=== PATIENT | male | born 1960 | race Caucasian/White ===

== ENCOUNTER 2022-01-16 14:28 | Observation (INO) ==
[2022-01-16 15:09] LABS: Basophils % 0.3 %; Eosinophils % 0.2 %; Hemoglobin 11.8 g/dL (12.9-16.9); Immature Granulocytes % 1.1 % (0-4); Lymphocytes # 1.1 K/mcL (0.6-4.6); Lymphocytes % 17.6 %; Mean Corpuscular HGB Conc 35.8 g/dL (31.6-35.5); Mean Corpuscular Hemoglobin 29.6 pg (28.0-33.3); Mean Corpuscular Volume 82.7 fL (83.0-100.0); Mean Platelet Volume 8.4 fL (9.4-12.4); Monocytes # 0.9 K/mcL (0.0-1.3); Monocytes % 13.9 %; Neutrophils # 4.3 K/mcL (1.6-8.9); Platelet Count 197 K/mcL (140-400); Red Blood Count 3.99 M/mcL (4.19-5.50); Red Cell Distribution Width 15.3 % (11.5-14.5); Segmented Neutrophils % 66.9 %; White Blood Count 6.4 K/mcL (4.3-11.1)
[2022-01-16 15:17] LABS: INR 1.1; Prothrombin Time 12.5 Seconds (9.4-12.1)
[2022-01-16 15:20] LABS: Activated Partial Thrombo Time 29.4 Seconds (26.0-36.0)
[2022-01-16] MEDS ORDERED: Isovue-370 500 ML BOTTLE IVP ONE (15:21)
[2022-01-16 15:40] LABS: Alanine Aminotransferase 13 Units/L (7-52); Albumin 4.3 g/dL (3.5-5.7); Albumin/Globulin Ratio 1.7 (1.1-2.2); Alkaline Phosphatase 120 Units/L (34-104); Aspartate Amino Transferase 24 Units/L (13-39); BUN/Creatinine Ratio 10 (6-26); Bilirubin,Direct 0.1 mg/dL (0.0-0.2); Bilirubin,Indirect 0.3 mg/dL (0.0-1.0); Bilirubin,Total 0.4 mg/dL (0.3-1.0); Blood Urea Nitrogen 7 mg/dL (6-20); Calcium 9.2 mg/dL (8.6-10.3); Carbon Dioxide 25 mEq/L (23-29); Chloride 85 mEq/L (98-107); Globulin 2.6 g/dL (2.4-3.5); Glucose 144 mg/dL (70-105); Osmolality,Calculated 249 (280-300); Potassium 3.7 mEq/L (3.5-5.1); Sodium 119 mEq/L (136-145); Total Protein 6.9 g/dL (6.4-8.9); Troponin I < 0.03 ng/mL (< 0.04); eGFR For African Americans > 60 (> 60); eGFR For Non-African Americans > 60 (> 60)
[2022-01-16 16:14] LABS: Influenza A PCR Negative (Negative); Influenza B PCR Negative (Negative); Resp. Syncytial Virus PCR Negative (Negative)
[2022-01-16 16:15] LABS: SARS-CoV-2 by PCR (In House) Negative (Negative)
[2022-01-16] MEDS ORDERED: Aspirin 325 MG TABLET PO ONE (18:12)
[2022-01-16] MEDS ORDERED: Famotidine 20 MG/2 ML VIAL IVP ONE (18:16)
[2022-01-16] MEDS ORDERED: Naloxone 0.4 MG/ML INJ IVP PRN (18:46)
[2022-01-16] MEDS ORDERED: *HR* HYDROcodone/Acet 5/325 mg TABLET PO PRN (19:42)
[2022-01-16] MEDS ORDERED: traZODone 50 MG TABLET PO PRN (19:42)
[2022-01-16] MEDS: OLANZapine 5 MG TAB.RAPDIS PO SCH (20:53)
[2022-01-16] MEDS: Gabapentin 300 MG CAPSULE PO SCH (20:53)
[2022-01-16] MEDS ORDERED: Nitroglycerin 0.4 MG TAB.SUBL SL PRN (20:59)
[2022-01-16] MEDS: *HR* Heparin 5,000 UNIT/ML VIAL SQ SCH (22:02)
[2022-01-16 23:06] LABS: BUN/Creatinine Ratio 13 (6-26); Blood Urea Nitrogen 8 mg/dL (6-20); Calcium 8.5 mg/dL (8.6-10.3); Carbon Dioxide 24 mEq/L (23-29); Chloride 88 mEq/L (98-107); Glucose 174 mg/dL (70-105); Osmolality,Calculated 251 (280-300); Sodium 119 mEq/L (136-145); Troponin I < 0.03 ng/mL (< 0.04); eGFR For African Americans > 60 (> 60); eGFR For Non-African Americans > 60 (> 60)
[2022-01-17 01:20] LABS: Chol/HDL Ratio 3.4 (0-4.9)
[2022-01-17 01:21] LABS: BUN/Creatinine Ratio 13 (6-26); Blood Urea Nitrogen 8 mg/dL (6-20); Calcium 8.7 mg/dL (8.6-10.3); Carbon Dioxide 25 mEq/L (23-29); Chloride 89 mEq/L (98-107); Glucose 125 mg/dL (70-105); Osmolality,Calculated 250 (280-300); Sodium 120 mEq/L (136-145); eGFR For African Americans > 60 (> 60); eGFR For Non-African Americans > 60 (> 60)
[2022-01-17] MEDS ORDERED: Regadenoson 0.4 MG/5 ML SYRINGE IVP ONE (07:41)
[2022-01-17] MEDS ORDERED: *HR* Metoprolol 5 MG/5 ML VIAL IVP ONE (09:00)
[2022-01-17] MEDS ORDERED: OLANZapine 5 MG TAB.RAPDIS PO SCH (09:00)
[2022-01-17] MEDS: Gabapentin 300 MG CAPSULE PO SCH ×3 (09:13→20:34)
[2022-01-17] MEDS: OLANZapine 5 MG TAB.RAPDIS PO SCH (09:13)
[2022-01-17] MEDS: *HR* Heparin 5,000 UNIT/ML VIAL SQ SCH ×3 (09:37→20:35)
[2022-01-17] MEDS: NIFEdipine XL (24 HR) 60 MG TAB.ER.24 PO SCH (12:01)
[2022-01-17] MEDS ORDERED: Tolvaptan 15 MG TABLET PO ONE (13:00)
[2022-01-17] MEDS ORDERED: Perflutren Lipid Microsphere 1.3 ML in 0.9 % Sodium Chloride 8.7 ML IVP PRN (13:59)
[2022-01-17] MEDS ORDERED: Acetaminophen 325 MG TABLET PO PRN (17:14)
[2022-01-18] MEDS: *HR* Heparin 5,000 UNIT/ML VIAL SQ SCH (04:53)
[2022-01-18 05:48] LABS: Hematocrit 33.5 % (37.5-50.1); Hemoglobin 11.8 g/dL (12.9-16.9); Mean Corpuscular HGB Conc 35.2 g/dL (31.6-35.5); Mean Corpuscular Hemoglobin 30.5 pg (28.0-33.3); Mean Corpuscular Volume 86.6 fL (83.0-100.0); Mean Platelet Volume 8.7 fL (9.4-12.4); Monocytes # 1.7 K/mcL (0.0-1.3); Platelet Count 234 K/mcL (140-400); Red Blood Count 3.87 M/mcL (4.19-5.50); Red Cell Distribution Width 16.3 % (11.5-14.5); White Blood Count 8.6 K/mcL (4.3-11.1)
[2022-01-18 06:20] LABS: BUN/Creatinine Ratio 14 (6-26); Blood Urea Nitrogen 13 mg/dL (6-20); Calcium 9.8 mg/dL (8.6-10.3); Carbon Dioxide 27 mEq/L (23-29); Chloride 98 mEq/L (98-107); Glucose 122 mg/dL (70-105); Magnesium 2.1 mg/dL (1.6-2.6); Osmolality,Calculated 277 (280-300); Phosphorous 2.9 mg/dL (2.7-4.5); Potassium 4.2 mEq/L (3.5-5.1); Sodium 133 mEq/L (136-145); eGFR For African Americans > 60 (> 60); eGFR For Non-African Americans > 60 (> 60)
[2022-01-18 06:57] LABS: Neutrophils # 5.9 K/mcL (1.6-8.9)
[2022-01-18 06:59] LABS: Platelet Estimate Normal (Normal)
[2022-01-18 07:04] VITALS: BP 121/75; PULSE 111; TEMP 98.8; O2SAT 95
[2022-01-18] MEDS ORDERED: D5% in Water 1,000 ML IVC SCH (08:00)
[2022-01-18] MEDS: NIFEdipine XL (24 HR) 60 MG TAB.ER.24 PO SCH (08:11)
[2022-01-18] MEDS: Gabapentin 300 MG CAPSULE PO SCH (08:11)
[2022-01-18] MEDS: OLANZapine 5 MG TAB.RAPDIS PO SCH (08:11)
[2022-01-18] MEDS ORDERED: traZODone 50 MG TABLET PO PRN (11:10)
== END 2022-01-18 12:35 | disposition home or self-care (01) ==
LOC: 2ANU 14:28 → EMEROOARM 14:28 → 2ANU 19:56
PROVIDERS: ADMIT Family Medicine; ATTEND Family Medicine

== ENCOUNTER 2022-02-05 12:44 | Inpatient (IN) ==
[2022-02-05] MEDS ORDERED: 0.9 % Sodium Chloride 1,000 ML IVC ONE (13:37)
[2022-02-05] MEDS ORDERED: Isovue-370 500 ML BOTTLE IVP ONE (13:37)
[2022-02-05 14:04] LABS: Hemoglobin 9.7 g/dL (12.9-16.9); Nucleated Red Blood Cells 0.4 /100 WBC (0); Red Cell Distribution Width 16.5 % (11.5-14.5)
[2022-02-05 14:06] LABS: Hematocrit 27.1 % (37.5-50.1); Immature Platelets 5.5 % (1.1-6.1); Mean Corpuscular HGB Conc 35.8 g/dL (31.6-35.5); Mean Corpuscular Hemoglobin 29.5 pg (28.0-33.3); Mean Corpuscular Volume 82.4 fL (83.0-100.0); Mean Platelet Volume 9.1 fL (9.4-12.4); Platelet Count 152 K/mcL (140-400); Red Blood Count 3.29 M/mcL (4.19-5.50); White Blood Count 26.9 K/mcL (4.3-11.1)
[2022-02-05 14:30] LABS: Lymphocytes # 2.2 K/mcL (0.6-4.6); Monocytes # 1.1 K/mcL (0.0-1.3); Neutrophils # 21.8 K/mcL (1.6-8.9); Platelet Estimate Normal (Normal); Toxic Granulation Present (Not Present)
[2022-02-05 14:32] LABS: Anisocytosis 1+ (Not Present)
[2022-02-05 14:34] LABS: BUN/Creatinine Ratio 13 (6-26); Blood Urea Nitrogen 7 mg/dL (6-20); Calcium 8.7 mg/dL (8.6-10.3); Carbon Dioxide 26 mEq/L (23-29); Chloride 83 mEq/L (98-107); Glucose 108 mg/dL (70-105); Osmolality,Calculated 241 (280-300); Potassium 3.7 mEq/L (3.5-5.1); Sodium 116 mEq/L (136-145); Troponin I < 0.03 ng/mL (< 0.04); eGFR For African Americans > 60 (> 60); eGFR For Non-African Americans > 60 (> 60)
[2022-02-05] MEDS ORDERED: cefTRIAXone 1,000 MG in 0.9 % Sodium Chloride Mini Bag 100 ML IVPB ONE (14:48)
[2022-02-05 15:40] LABS: Bilirubin,Urine Negative (Negative); Blood,Urine Negative (Negative); Clarity,Urine Clear (Clear); Color,Urine Colorless (Yellow); Glucose,Urine (UA) Normal (Normal); Ketones,Urine Negative (Negative); Leukocyte Esterase,Urine Negative (Negative); Nitrite,Urine Negative (Negative); Protein,Urine Negative (Neg-Trace); Specific Gravity,Urine > 1.030 (1.010-1.025); Urobilinogen,Urine Normal (Normal)
[2022-02-05] MEDS ORDERED: Piperacillin/Tazobactam 3.375 GM in 0.9 % Sodium Chloride Mini Bag 100 ML IVPB ONE (15:57)
[2022-02-05] MEDS ORDERED: Acetaminophen 325 MG TABLET PO PRN (17:05)
[2022-02-05] MEDS ORDERED: Naloxone 0.4 MG/ML INJ IVP PRN (17:05)
[2022-02-05] MEDS ORDERED: Ondansetron 4 MG/2 ML VIAL IVP PRN (17:05)
[2022-02-05] MEDS ORDERED: Melatonin 3 MG TABLET PO PRN (17:05)
[2022-02-05] MEDS ORDERED: Nicotine 2 MG GUM BC PRN (17:10)
[2022-02-05] MEDS ORDERED: OLANZapine 5 MG TAB.RAPDIS PO PRN (17:15)
[2022-02-05] MEDS: Nicotine 21 MG PATCH.TD24 TD SCH (17:29)
[2022-02-05] MEDS: 0.9 % Sodium Chloride 1,000 ML IVC SCH ×2 (17:30→19:49)
[2022-02-05] MEDS: *HR* HYDROcodone/Acet 5/325 mg TABLET PO PRN ×2 (17:30→23:43)
[2022-02-05] MEDS ORDERED: 0.9 % Sodium Chloride 1,000 ML IV ONE (18:47)
[2022-02-05] MEDS: Gabapentin 300 MG CAPSULE PO SCH (21:32)
[2022-02-05] MEDS: Piperacillin/Tazobactam 3.375 GM in 0.9 % Sodium Chloride Mini Bag 100 ML IVPB SCH (23:51)
[2022-02-06] MEDS: *HR* Enoxaparin 40 MG/0.4 ML SYRINGE SQ SCH (06:02)
[2022-02-06] MEDS: 0.9 % Sodium Chloride 1,000 ML IVC SCH (06:05)
[2022-02-06 06:09] LABS: Hematocrit 25.4 % (37.5-50.1); Hemoglobin 9.1 g/dL (12.9-16.9); Mean Corpuscular HGB Conc 35.8 g/dL (31.6-35.5); Mean Corpuscular Hemoglobin 29.9 pg (28.0-33.3); Mean Corpuscular Volume 83.6 fL (83.0-100.0); Mean Platelet Volume 9.7 fL (9.4-12.4); Nucleated Red Blood Cells 0.4 /100 WBC (0); Platelet Count 126 K/mcL (140-400); Red Blood Count 3.04 M/mcL (4.19-5.50); Red Cell Distribution Width 16.7 % (11.5-14.5); White Blood Count 24.8 K/mcL (4.3-11.1)
[2022-02-06 06:32] LABS: Monocytes # 0.5 K/mcL (0.0-1.3); Neutrophils # 20.8 K/mcL (1.6-8.9); Platelet Estimate Normal (Normal)
[2022-02-06 06:39] LABS: Alanine Aminotransferase 10 Units/L (7-52); Albumin 3.6 g/dL (3.5-5.7); Albumin/Globulin Ratio 1.7 (1.1-2.2); Alkaline Phosphatase 124 Units/L (34-104); Aspartate Amino Transferase 15 Units/L (13-39); BUN/Creatinine Ratio 9 (6-26); Bilirubin,Direct 0.1 mg/dL (0.0-0.2); Bilirubin,Indirect 0.2 mg/dL (0.0-1.0); Bilirubin,Total 0.3 mg/dL (0.3-1.0); Blood Urea Nitrogen 5 mg/dL (6-20); Calcium 8.2 mg/dL (8.6-10.3); Carbon Dioxide 24 mEq/L (23-29); Chloride 85 mEq/L (98-107); Globulin 2.1 g/dL (2.4-3.5); Glucose 85 mg/dL (70-105); Magnesium 1.4 mg/dL (1.6-2.6); Osmolality,Calculated 237 (280-300); Phosphorous 3.4 mg/dL (2.7-4.5); Potassium 4.1 mEq/L (3.5-5.1); Sodium 115 mEq/L (136-145); Total Protein 5.7 g/dL (6.4-8.9); eGFR For African Americans > 60 (> 60); eGFR For Non-African Americans > 60 (> 60)
[2022-02-06] MEDS ORDERED: Tolvaptan 15 MG TABLET PO ONE (08:24)
[2022-02-06] MEDS: *HR* HYDROcodone/Acet 5/325 mg TABLET PO PRN ×2 (09:11→16:35)
[2022-02-06] MEDS: NIFEdipine XL (24 HR) 60 MG TAB.ER.24 PO SCH (09:12)
[2022-02-06] MEDS: Gabapentin 300 MG CAPSULE PO SCH ×3 (09:12→21:39)
[2022-02-06] MEDS: Nicotine 21 MG PATCH.TD24 TD SCH (09:20)
[2022-02-06 10:38] LABS: Adenovirus Not Detected (Not Detect); Bordetella Pertussis Not Detected (Not Detect); Chlamydophila pneumoniae Not Detected (Not Detect); Coronavirus 229E Not Detected (Not Detect); Coronavirus HKU1 Not Detected (Not Detect); Coronavirus NL63 Not Detected (Not Detect); Coronavirus OC43 Not Detected (Not Detect); Human Metapneumovirus Not Detected (Not Detect); Human Rhinovirus/Enterovirus Not Detected (Not Detect); Influenza A Subtype 2009 H1 Not Detected (Not Detect); Influenza B Not Detected (Not Detect); Mycoplasma pneumoniae Not Detected (Not Detect); Parainfluenza Virus 1 Not Detected (Not Detect); Parainfluenza Virus 2 Not Detected (Not Detect); Parainfluenza Virus 3 Not Detected (Not Detect); Parainfluenza Virus 4 Not Detected (Not Detect); Respiratory Syncytial Virus Not Detected (Not Detect); SARS-CoV-2 Not Detected (Not Detect)
[2022-02-06] MEDS: Piperacillin/Tazobactam 3.375 GM in 0.9 % Sodium Chloride Mini Bag 100 ML IVPB SCH ×2 (11:09→17:17)
[2022-02-06] MEDS ORDERED: D5% in Water 1,000 ML IVC SCH (18:15)
[2022-02-07] MEDS: *HR* Enoxaparin 40 MG/0.4 ML SYRINGE SQ SCH (05:30)
[2022-02-07] MEDS: Piperacillin/Tazobactam 3.375 GM in 0.9 % Sodium Chloride Mini Bag 100 ML IVPB SCH (08:01)
[2022-02-07] MEDS: Gabapentin 300 MG CAPSULE PO SCH (08:27)
[2022-02-07] MEDS: NIFEdipine XL (24 HR) 60 MG TAB.ER.24 PO SCH (08:27)
[2022-02-07] MEDS: Nicotine 21 MG PATCH.TD24 TD SCH (08:29)
[2022-02-07 11:02] VITALS: BP 123/70; PULSE 84; TEMP 97.5
[2022-02-07 13:06] VITALS: O2SAT 99
== END 2022-02-07 13:08 | disposition home or self-care (01) | DRG 871 ==
LOC: 2NNU 12:44 → EMEROOARM 12:44 → 2NNU 16:44 → SUATTDRO 17:45
PROVIDERS: ADMIT Internal Medicine; ATTEND Internal Medicine

== ENCOUNTER 2022-03-23 22:03 | Inpatient (IN) ==
[2022-03-23 22:58] LABS: Hematocrit 23.1 % (37.5-50.1); Hemoglobin 8.6 g/dL (12.9-16.9); Mean Corpuscular Hemoglobin 31.3 pg (28.0-33.3); Mean Platelet Volume 9.1 fL (9.4-12.4); Nucleated Red Blood Cells 0.1 /100 WBC (0); Platelet Count 128 K/mcL (140-400); Red Blood Count 2.75 M/mcL (4.19-5.50); Red Cell Distribution Width 18.9 % (11.5-14.5); White Blood Count 16.6 K/mcL (4.3-11.1)
[2022-03-23] MEDS ORDERED: 0.9 % Sodium Chloride 1,000 ML IV ONE (22:59)
[2022-03-23 23:08] LABS: Mean Corpuscular HGB Conc 37.2 g/dL (31.6-35.5)
[2022-03-23 23:31] LABS: Monocytes # 0.7 K/mcL (0.0-1.3); Neutrophils # 14.3 K/mcL (1.6-8.9); Platelet Estimate Normal (Normal)
[2022-03-23 23:32] LABS: Anisocytosis 1+ (Not Present)
[2022-03-23 23:35] LABS: BUN/Creatinine Ratio 11 (6-26); Blood Urea Nitrogen 7 mg/dL (6-20); Calcium 9.7 mg/dL (8.6-10.3); Carbon Dioxide 24 mEq/L (23-29); Chloride 78 mEq/L (98-107); Glucose 105 mg/dL (70-105); Osmolality,Calculated 232 (280-300); Potassium 3.8 mEq/L (3.5-5.1); Sodium 112 mEq/L (136-145); eGFR For African Americans > 60 (> 60); eGFR For Non-African Americans > 60 (> 60)
[2022-03-24 00:40] LABS: Bilirubin,Urine Negative (Negative); Blood,Urine Negative (Negative); Clarity,Urine Clear (Clear); Color,Urine Light-Yellow (Yellow); Glucose,Urine (UA) Normal (Normal); Ketones,Urine 10 mg/dL (Negative); Leukocyte Esterase,Urine Negative (Negative); Nitrite,Urine Negative (Negative); Protein,Urine Trace mg/dL (Neg-Trace); Specific Gravity,Urine 1.018 (1.010-1.025); Urobilinogen,Urine Normal (Normal)
[2022-03-24] MEDS ORDERED: *HR* Labetalol 20 MG/4 ML SYRINGE IVP ONE (02:03)
[2022-03-24] MEDS ORDERED: Melatonin 3 MG TABLET PO PRN (02:18)
[2022-03-24] MEDS ORDERED: Naloxone 0.4 MG/ML INJ IVP PRN (02:18)
[2022-03-24] MEDS ORDERED: *HR* Metoprolol 5 MG/5 ML VIAL IVP ONE (02:55)
[2022-03-24] MEDS ORDERED: traZODone 50 MG TABLET PO PRN (03:02)
[2022-03-24] MEDS: Gabapentin 300 MG CAPSULE PO SCH ×4 (04:03→19:56)
[2022-03-24 04:37] LABS: Hematocrit 21.7 % (37.5-50.1); Mean Corpuscular HGB Conc 36.9 g/dL (31.6-35.5); Mean Corpuscular Hemoglobin 31.1 pg (28.0-33.3); Mean Corpuscular Volume 84.4 fL (83.0-100.0); Mean Platelet Volume 8.7 fL (9.4-12.4); Nucleated Red Blood Cells 0.3 /100 WBC (0); Platelet Count 113 K/mcL (140-400); Red Blood Count 2.57 M/mcL (4.19-5.50); White Blood Count 15.5 K/mcL (4.3-11.1)
[2022-03-24 05:05] LABS: Procalcitonin 0.19 ng/mL (0.00-0.15)
[2022-03-24 05:06] LABS: Anisocytosis 1+ (Not Present); Lymphocytes # 0.9 K/mcL (0.6-4.6); Monocytes # 0.9 K/mcL (0.0-1.3); Neutrophils # 13.6 K/mcL (1.6-8.9); Platelet Estimate Slight Decrease (Normal)
[2022-03-24 05:21] LABS: Folate 11.3 ng/mL (3.0-16.0)
[2022-03-24 05:22] LABS: BUN/Creatinine Ratio 10 (6-26); Blood Urea Nitrogen 6 mg/dL (6-20); Calcium 8.9 mg/dL (8.6-10.3); Carbon Dioxide 24 mEq/L (23-29); Chloride 81 mEq/L (98-107); Glucose 94 mg/dL (70-105); Osmolality,Calculated 235 (280-300); Potassium 3.4 mEq/L (3.5-5.1); Sodium 114 mEq/L (136-145); eGFR For African Americans > 60 (> 60); eGFR For Non-African Americans > 60 (> 60)
[2022-03-24 05:32] LABS: Vitamin B12 > 1500 pg/mL (250-1100)
[2022-03-24] MEDS: cefTRIAXone 1,000 MG in 0.9 % Sodium Chloride 10 ML IVP SCH (05:56)
[2022-03-24] MEDS: 0.9 % Sodium Chloride 1,000 ML IVC SCH ×2 (05:57→19:56)
[2022-03-24] MEDS: Doxycycline 100 MG in 0.9 % Sodium Chloride Mini Bag 100 ML IVPB SCH ×2 (05:57→18:02)
[2022-03-24 09:03] LABS: BUN/Creatinine Ratio 8 (6-26); Blood Urea Nitrogen 5 mg/dL (6-20); Carbon Dioxide 24 mEq/L (23-29); Chloride 81 mEq/L (98-107); Glucose 88 mg/dL (70-105); Osmolality,Calculated 231 (280-300); Potassium 3.9 mEq/L (3.5-5.1); Sodium 112 mEq/L (136-145); eGFR For African Americans > 60 (> 60); eGFR For Non-African Americans > 60 (> 60)
[2022-03-24] MEDS ORDERED: Tolvaptan 15 MG TABLET PO ONE (10:22)
[2022-03-24] MEDS ORDERED: GADOBUTROL 30 MMOL/30 ML VIAL IVP ONE (12:04)
[2022-03-24 14:15] LABS: BUN/Creatinine Ratio 10 (6-26); Blood Urea Nitrogen 7 mg/dL (6-20); Calcium 8.7 mg/dL (8.6-10.3); Carbon Dioxide 23 mEq/L (23-29); Chloride 83 mEq/L (98-107); Glucose 75 mg/dL (70-105); Osmolality,Calculated 235 (280-300); Potassium 3.5 mEq/L (3.5-5.1); Sodium 114 mEq/L (136-145); eGFR For African Americans > 60 (> 60); eGFR For Non-African Americans > 60 (> 60)
[2022-03-24 18:47] LABS: VBG Ionized Calcium 1.27 mmol/L (1.15-1.35)
[2022-03-24 19:07] LABS: BUN/Creatinine Ratio 11 (6-26); Blood Urea Nitrogen 8 mg/dL (6-20); Calcium 8.9 mg/dL (8.6-10.3); Carbon Dioxide 20 mEq/L (23-29); Chloride 88 mEq/L (98-107); Glucose 75 mg/dL (70-105); Magnesium 1.4 mg/dL (1.6-2.6); Osmolality,Calculated 243 (280-300); Potassium 3.8 mEq/L (3.5-5.1); Sodium 118 mEq/L (136-145); eGFR For African Americans > 60 (> 60); eGFR For Non-African Americans > 60 (> 60)
[2022-03-25] MEDS: cefTRIAXone 1,000 MG in 0.9 % Sodium Chloride 10 ML IVP SCH (05:24)
[2022-03-25] MEDS: Doxycycline 100 MG in 0.9 % Sodium Chloride Mini Bag 100 ML IVPB SCH (05:24)
[2022-03-25 06:22] LABS: Hematocrit 24.4 % (37.5-50.1); Hemoglobin 8.7 g/dL (12.9-16.9); Mean Corpuscular HGB Conc 35.7 g/dL (31.6-35.5); Mean Corpuscular Hemoglobin 31.6 pg (28.0-33.3); Mean Corpuscular Volume 88.7 fL (83.0-100.0); Mean Platelet Volume 9.1 fL (9.4-12.4); Platelet Count 136 K/mcL (140-400); Red Blood Count 2.75 M/mcL (4.19-5.50); Red Cell Distribution Width 19.9 % (11.5-14.5); White Blood Count 10.6 K/mcL (4.3-11.1)
[2022-03-25] MEDS: Gabapentin 300 MG CAPSULE PO SCH ×3 (08:14→20:34)
[2022-03-25 10:09] LABS: BUN/Creatinine Ratio 10 (6-26); Blood Urea Nitrogen 8 mg/dL (6-20); Calcium 9.1 mg/dL (8.6-10.3); Carbon Dioxide 23 mEq/L (23-29); Chloride 99 mEq/L (98-107); Glucose 79 mg/dL (70-105); Osmolality,Calculated 267 (280-300); Potassium 3.5 mEq/L (3.5-5.1); Sodium 130 mEq/L (136-145); eGFR For African Americans > 60 (> 60); eGFR For Non-African Americans > 60 (> 60)
[2022-03-25] MEDS: 0.9 % Sodium Chloride 1,000 ML IVC SCH (10:34)
[2022-03-25] MEDS: predniSONE 20 MG TABLET PO SCH (10:38)
[2022-03-25 10:43] LABS: BUN/Creatinine Ratio 11 (6-26); Blood Urea Nitrogen 8 mg/dL (6-20); Calcium 9.3 mg/dL (8.6-10.3); Carbon Dioxide 23 mEq/L (23-29); Chloride 100 mEq/L (98-107); Glucose 150 mg/dL (70-105); Osmolality,Calculated 273 (280-300); Potassium 3.3 mEq/L (3.5-5.1); Sodium 131 mEq/L (136-145); eGFR For African Americans > 60 (> 60); eGFR For Non-African Americans > 60 (> 60)
[2022-03-25 11:42] LABS: Luteinizing Hormone 1.27 mIU/mL (1.24-7.80)
[2022-03-25 14:51] LABS: % Iron Saturation 27 % (20-55); Alanine Aminotransferase 11 Units/L (7-52); Aspartate Amino Transferase 25 Units/L (13-39); Bilirubin,Indirect 0.2 mg/dL (0.0-1.0); Bilirubin,Total 0.2 mg/dL (0.3-1.0); Iron 93 mcg/dL (65-175); Phosphorous 2.3 mg/dL (2.7-4.5); Thyroid Stimulating Hormone 0.677 mcIU/mL (0.340-5.600); Transferrin 250 mg/dL (203-362)
[2022-03-25 14:55] LABS: Ferritin 349 ng/mL (20-250)
[2022-03-25 15:39] LABS: Alkaline Phosphatase 98 Units/L (34-104)
[2022-03-25 17:50] LABS: BUN/Creatinine Ratio 14 (6-26); Blood Urea Nitrogen 11 mg/dL (6-20); Calcium 9.1 mg/dL (8.6-10.3); Carbon Dioxide 23 mEq/L (23-29); Chloride 98 mEq/L (98-107); Glucose 172 mg/dL (70-105); Osmolality,Calculated 271 (280-300); Potassium 3.6 mEq/L (3.5-5.1); Sodium 129 mEq/L (136-145); eGFR For African Americans > 60 (> 60); eGFR For Non-African Americans > 60 (> 60)
[2022-03-25 22:04] LABS: BUN/Creatinine Ratio 18 (6-26); Blood Urea Nitrogen 12 mg/dL (6-20); Carbon Dioxide 21 mEq/L (23-29); Chloride 97 mEq/L (98-107); Glucose 221 mg/dL (70-105); Osmolality,Calculated 273 (280-300); Potassium 3.9 mEq/L (3.5-5.1); Sodium 128 mEq/L (136-145); eGFR For African Americans > 60 (> 60); eGFR For Non-African Americans > 60 (> 60)
[2022-03-26 01:41] LABS: Hematocrit 22.8 % (37.5-50.1); Hemoglobin 8.2 g/dL (12.9-16.9); Mean Corpuscular Hemoglobin 31.8 pg (28.0-33.3); Mean Corpuscular Volume 88.4 fL (83.0-100.0); Mean Platelet Volume 8.7 fL (9.4-12.4); Platelet Count 114 K/mcL (140-400); Red Blood Count 2.58 M/mcL (4.19-5.50); Red Cell Distribution Width 19.7 % (11.5-14.5)
[2022-03-26 01:46] LABS: White Blood Count 17.9 K/mcL (4.3-11.1)
[2022-03-26 02:03] LABS: Blood Urea Nitrogen 10 mg/dL (6-20); Calcium 9.2 mg/dL (8.6-10.3); Carbon Dioxide 23 mEq/L (23-29); Chloride 97 mEq/L (98-107); Glucose 148 mg/dL (70-105); Osmolality,Calculated 272 (280-300); Potassium 3.5 mEq/L (3.5-5.1); Sodium 130 mEq/L (136-145)
[2022-03-26 03:14] LABS: BUN/Creatinine Ratio 19 (6-26); eGFR For African Americans > 60 (> 60); eGFR For Non-African Americans > 60 (> 60)
[2022-03-26] MEDS: predniSONE 20 MG TABLET PO SCH (08:20)
[2022-03-26] MEDS: Gabapentin 300 MG CAPSULE PO SCH (08:20)
[2022-03-26 11:34] VITALS: BP 173/90; PULSE 97; TEMP 97.4; O2SAT 97
== END 2022-03-26 12:28 | disposition home or self-care (01) | DRG 180 ==
LOC: EMEROOARM 22:03 → 2NNU 22:03 → SUATTDRO 03-24 02:18 → 3ANU 03-25 18:11
PROVIDERS: ADMIT Internal Medicine; ATTEND Family Medicine

== ENCOUNTER 2022-04-01 13:50 | Inpatient (IN) ==
[2022-04-01] MEDS ORDERED: Naloxone 0.4 MG/ML INJ IVP PRN (16:44)
[2022-04-01] MEDS ORDERED: *HR* LORazepam 2 MG/ML VIAL IVP PRN (17:53)
[2022-04-01 18:35] LABS: Alanine Aminotransferase 17 Units/L (7-52); Albumin 3.6 g/dL (3.5-5.7); Albumin/Globulin Ratio 1.7 (1.1-2.2); Alkaline Phosphatase 83 Units/L (34-104); Aspartate Amino Transferase 34 Units/L (13-39); BUN/Creatinine Ratio 22 (6-26); Bilirubin,Total 0.4 mg/dL (0.3-1.0); Blood Urea Nitrogen 13 mg/dL (6-20); Calcium 8.7 mg/dL (8.6-10.3); Carbon Dioxide 24 mEq/L (23-29); Chloride 97 mEq/L (98-107); Globulin 2.1 g/dL (2.4-3.5); Glucose 82 mg/dL (70-105); Magnesium 1.8 mg/dL (1.6-2.6); Osmolality,Calculated 267 (280-300); Phosphorous 3.9 mg/dL (2.7-4.5); Potassium 4.6 mEq/L (3.5-5.1); Sodium 129 mEq/L (136-145); Total Protein 5.7 g/dL (6.4-8.9); eGFR For African Americans > 60 (> 60); eGFR For Non-African Americans > 60 (> 60)
[2022-04-01] MEDS ORDERED: Perflutren Lipid Microsphere 1.3 ML in 0.9 % Sodium Chloride 8.7 ML IVP PRN (19:05)
[2022-04-01] MEDS ORDERED: *HR* Heparin 5,000 UNIT/ML VIAL IVP ONE (19:07)
[2022-04-01] MEDS ORDERED: *HR* Heparin 5,000 UNIT/ML VIAL IVP PRN ×2 (19:07)
[2022-04-01 19:56] LABS: Red Cell Distribution Width 20.1 % (11.5-14.5)
[2022-04-01 19:58] LABS: Hematocrit 23.1 % (37.5-50.1); Hemoglobin 7.9 g/dL (12.9-16.9); Mean Corpuscular HGB Conc 34.2 g/dL (31.6-35.5); Mean Corpuscular Volume 93.5 fL (83.0-100.0); Nucleated Red Blood Cells 1.5 /100 WBC (0); Red Blood Count 2.47 M/mcL (4.19-5.50); White Blood Count 13.5 K/mcL (4.3-11.1)
[2022-04-01 20:03] LABS: Heparin anti-factor XA UFH < 0.04 IU/mL (0.30-0.70)
[2022-04-01 20:04] LABS: INR 1.1; Prothrombin Time 12.7 Seconds (9.4-12.1)
[2022-04-01] MEDS ORDERED: Aspirin 325 MG TABLET PO ONE (20:22)
[2022-04-01] MEDS: Heparin 25,000UNIT/250ML 1/2NS 25,000 UNIT/250 ML IV.SOLN IVC SCH (20:28)
[2022-04-01 20:36] LABS: Platelet Count 80 K/mcL (140-400)
[2022-04-01 20:41] LABS: Monocytes # 0.5 K/mcL (0.0-1.3); Neutrophils # 9.2 K/mcL (1.6-8.9)
[2022-04-01 20:42] LABS: Anisocytosis 2+ (Not Present); Hypochromasia Present (Not Present); Platelet Estimate Marked Decrease (Normal)
[2022-04-01] MEDS ORDERED: *HR* HYDROcodone/Acet 5/325 mg TABLET PO PRN (21:05)
[2022-04-02 01:59] LABS: Alanine Aminotransferase 16 Units/L (7-52); Albumin 3.4 g/dL (3.5-5.7); Albumin/Globulin Ratio 1.5 (1.1-2.2); Alkaline Phosphatase 82 Units/L (34-104); Aspartate Amino Transferase 43 Units/L (13-39); BUN/Creatinine Ratio 23 (6-26); Bilirubin,Total 0.4 mg/dL (0.3-1.0); Blood Urea Nitrogen 15 mg/dL (6-20); Calcium 8.6 mg/dL (8.6-10.3); Carbon Dioxide 23 mEq/L (23-29); Chloride 99 mEq/L (98-107); Globulin 2.3 g/dL (2.4-3.5); Glucose 99 mg/dL (70-105); Magnesium 1.5 mg/dL (1.6-2.6); Osmolality,Calculated 273 (280-300); Phosphorous 4.1 mg/dL (2.7-4.5); Potassium 4.4 mEq/L (3.5-5.1); Sodium 131 mEq/L (136-145); Total Protein 5.7 g/dL (6.4-8.9); eGFR For African Americans > 60 (> 60); eGFR For Non-African Americans > 60 (> 60)
[2022-04-02 06:00] LABS: Red Cell Distribution Width 19.9 % (11.5-14.5)
[2022-04-02 06:02] LABS: Hematocrit 24.1 % (37.5-50.1); Immature Platelets 3.2 % (1.1-6.1); Mean Corpuscular HGB Conc 33.2 g/dL (31.6-35.5); Mean Corpuscular Hemoglobin 31.4 pg (28.0-33.3); Mean Corpuscular Volume 94.5 fL (83.0-100.0); Mean Platelet Volume 8.8 fL (9.4-12.4); Nucleated Red Blood Cells 1.7 /100 WBC (0); Red Blood Count 2.55 M/mcL (4.19-5.50); White Blood Count 15.1 K/mcL (4.3-11.1)
[2022-04-02 06:45] LABS: Platelet Count 84 K/mcL (140-400)
[2022-04-02 06:46] LABS: Anisocytosis 2+ (Not Present); Lymphocytes # 4.2 K/mcL (0.6-4.6); Neutrophils # 10.3 K/mcL (1.6-8.9); Platelet Estimate Decreased (Normal)
[2022-04-02] MEDS: Budesonide/Formoterol 80/4.5 1 PUFF INH IH SCH ×2 (07:24→21:23)
[2022-04-02] MEDS: Gabapentin 300 MG CAPSULE PO SCH ×3 (08:42→19:42)
[2022-04-02] MEDS: *HR* Metoprolol 5 MG/5 ML VIAL IVP PRN (08:42)
[2022-04-02] MEDS: Aspirin 81 MG TAB.CHEW PO SCH (08:42)
[2022-04-02] MEDS ORDERED: predniSONE 20 MG TABLET PO SCH (09:00)
[2022-04-02] MEDS ORDERED: Ipratropium/Albuterol Neb 3 ML IH SCH (10:00)
[2022-04-02] MEDS ORDERED: Gadolinium Contrast Agent (WT Based) IV PRN (13:20)
[2022-04-02] MEDS: Albuterol 2.5 MG/3 ML NEBULIZER IH SCH ×2 (16:00→21:21)
[2022-04-02] MEDS: *HR* HYDROmorphone 2 MG/ML SYRINGE IVP PRN (17:01)
[2022-04-02] MEDS: Piperacillin/Tazobactam 3.375 GM in 0.9 % Sodium Chloride Mini Bag 100 ML IVPB SCH (18:36)
[2022-04-02] MEDS: GuaiFENesin/Dextromethorphan TABLET PO SCH (19:42)
[2022-04-02] MEDS: Vancomycin 1,250 MG/262.5 ML IV.SOLN IVPB SCH (19:42)
[2022-04-02] MEDS: Heparin 25,000UNIT/250ML 1/2NS 25,000 UNIT/250 ML IV.SOLN IVC SCH (21:22)
[2022-04-03 00:49] LABS: Hemoglobin 8.1 g/dL (12.9-16.9); Mean Corpuscular Volume 94.1 fL (83.0-100.0)
[2022-04-03 00:51] LABS: Hematocrit 24.1 % (37.5-50.1); Immature Platelets 4.2 % (1.1-6.1); Mean Corpuscular HGB Conc 33.6 g/dL (31.6-35.5); Mean Corpuscular Hemoglobin 31.6 pg (28.0-33.3); Mean Platelet Volume 9.6 fL (9.4-12.4); Nucleated Red Blood Cells 0.8 /100 WBC (0); Red Blood Count 2.56 M/mcL (4.19-5.50); Red Cell Distribution Width 19.8 % (11.5-14.5)
[2022-04-03 00:58] LABS: Platelet Count 71 K/mcL (140-400)
[2022-04-03 01:04] LABS: BUN/Creatinine Ratio 31 (6-26); Blood Urea Nitrogen 19 mg/dL (6-20); Calcium 8.7 mg/dL (8.6-10.3); Carbon Dioxide 26 mEq/L (23-29); Chloride 94 mEq/L (98-107); Glucose 132 mg/dL (70-105); Magnesium 1.7 mg/dL (1.6-2.6); Osmolality,Calculated 268 (280-300); Phosphorous 3.8 mg/dL (2.7-4.5); Potassium 4.4 mEq/L (3.5-5.1); Sodium 127 mEq/L (136-145); eGFR For African Americans > 60 (> 60); eGFR For Non-African Americans > 60 (> 60)
[2022-04-03] MEDS: Piperacillin/Tazobactam 3.375 GM in 0.9 % Sodium Chloride Mini Bag 100 ML IVPB SCH ×4 (01:14→23:30)
[2022-04-03 01:22] LABS: Thyroid Stimulating Hormone 0.109 mcIU/mL (0.340-5.600)
[2022-04-03 01:23] LABS: Triiodothyronine (T3) Free 2.34 pg/mL (2.50-3.90)
[2022-04-03 01:43] LABS: Platelet Estimate Decreased (Normal)
[2022-04-03 01:45] LABS: Lymphocytes # 2.9 K/mcL (0.6-4.6); Monocytes # 0.4 K/mcL (0.0-1.3)
[2022-04-03 01:46] LABS: Anisocytosis 1+ (Not Present)
[2022-04-03] MEDS: Albuterol 2.5 MG/3 ML NEBULIZER IH SCH ×4 (04:12→20:24)
[2022-04-03 04:14] LABS: Bilirubin,Urine Negative (Negative); Blood,Urine Negative (Negative); Clarity,Urine Clear (Clear); Color,Urine Yellow (Yellow); Glucose,Urine (UA) Normal (Normal); Ketones,Urine Trace mg/dL (Negative); Leukocyte Esterase,Urine Negative (Negative); Nitrite,Urine Negative (Negative); Protein,Urine 50 mg/dL (Neg-Trace); Specific Gravity,Urine > 1.030 (1.010-1.025); Urobilinogen,Urine Normal (Normal)
[2022-04-03] MEDS: Vancomycin 1,250 MG/262.5 ML IV.SOLN IVPB SCH (05:33)
[2022-04-03] MEDS: Aspirin 81 MG TAB.CHEW PO SCH (07:33)
[2022-04-03] MEDS: Gabapentin 300 MG CAPSULE PO SCH ×3 (07:33→21:37)
[2022-04-03] MEDS: GuaiFENesin/Dextromethorphan TABLET PO SCH ×2 (07:33→21:37)
[2022-04-03] MEDS: predniSONE 20 MG TABLET PO SCH (07:36)
[2022-04-03] MEDS: Budesonide/Formoterol 80/4.5 1 PUFF INH IH SCH ×2 (11:24→20:25)
[2022-04-03] MEDS: *HR* HYDROmorphone 2 MG/ML SYRINGE IVP PRN (13:24)
[2022-04-03] MEDS: Doxycycline 100 MG in 0.9 % Sodium Chloride Mini Bag 100 ML IVPB SCH (17:39)
[2022-04-03] MEDS: *HR* LORazepam 0.5 MG TABLET PO SCH (21:37)
[2022-04-03] MEDS: *HR* Heparin 5,000 UNIT/ML VIAL SQ SCH (21:38)
[2022-04-04] MEDS: Albuterol 2.5 MG/3 ML NEBULIZER IH SCH ×4 (04:11→20:57)
[2022-04-04] MEDS: Doxycycline 100 MG in 0.9 % Sodium Chloride Mini Bag 100 ML IVPB SCH ×3 (05:14→16:27)
[2022-04-04] MEDS: *HR* Heparin 5,000 UNIT/ML VIAL SQ SCH ×3 (05:14→21:30)
[2022-04-04] MEDS: *HR* Metoprolol 5 MG/5 ML VIAL IVP PRN ×2 (05:15→21:30)
[2022-04-04] MEDS ORDERED: *HR* Metoprolol 5 MG/5 ML VIAL IVP ONE (05:30)
[2022-04-04 05:39] LABS: Basophils # 0.1 K/mcL (0.0-0.2); Basophils % 0.5 %; Eosinophils # 0.1 K/mcL (0.0-0.6); Eosinophils % 0.3 %; Hematocrit 22.1 % (37.5-50.1); Hemoglobin 7.4 g/dL (12.9-16.9); Immature Granulocytes % 15.1 % (0-4); Lymphocytes # 2.4 K/mcL (0.6-4.6); Lymphocytes % 13.2 %; Mean Corpuscular HGB Conc 33.5 g/dL (31.6-35.5); Mean Corpuscular Hemoglobin 31.8 pg (28.0-33.3); Mean Corpuscular Volume 94.8 fL (83.0-100.0); Mean Platelet Volume 9.6 fL (9.4-12.4); Monocytes # 1.4 K/mcL (0.0-1.3); Neutrophils # 11.2 K/mcL (1.6-8.9); Nucleated Red Blood Cells 1.1 /100 WBC (0); Red Blood Count 2.33 M/mcL (4.19-5.50); Red Cell Distribution Width 19.6 % (11.5-14.5); Segmented Neutrophils % 62.9 %; White Blood Count 17.8 K/mcL (4.3-11.1)
[2022-04-04 05:45] LABS: Platelet Count 76 K/mcL (140-400)
[2022-04-04] MEDS: *HR* HYDROmorphone 2 MG/ML SYRINGE IVP PRN (05:46)
[2022-04-04 05:58] LABS: BUN/Creatinine Ratio 22 (6-26); Blood Urea Nitrogen 15 mg/dL (6-20); Calcium 8.6 mg/dL (8.6-10.3); Carbon Dioxide 25 mEq/L (23-29); Chloride 94 mEq/L (98-107); Glucose 102 mg/dL (70-105); Osmolality,Calculated 261 (280-300); Potassium 3.8 mEq/L (3.5-5.1); Sodium 125 mEq/L (136-145); eGFR For African Americans > 60 (> 60); eGFR For Non-African Americans > 60 (> 60)
[2022-04-04] MEDS: Aspirin 81 MG TAB.CHEW PO SCH (08:14)
[2022-04-04] MEDS: predniSONE 20 MG TABLET PO SCH (08:14)
[2022-04-04] MEDS: Gabapentin 300 MG CAPSULE PO SCH ×3 (08:15→21:30)
[2022-04-04] MEDS: GuaiFENesin/Dextromethorphan TABLET PO SCH ×2 (08:15→21:30)
[2022-04-04] MEDS: Piperacillin/Tazobactam 3.375 GM in 0.9 % Sodium Chloride Mini Bag 100 ML IVPB SCH ×3 (08:15→23:56)
[2022-04-04] MEDS ORDERED: *HR* HYDROcodone/Acet 5/325 mg TABLET PO PRN (10:27)
[2022-04-04] MEDS: Budesonide/Formoterol 80/4.5 1 PUFF INH IH SCH ×2 (10:39→20:57)
[2022-04-04] MEDS: *HR* LORazepam 0.5 MG TABLET PO SCH (21:30)
[2022-04-05 01:23] LABS: Hematocrit 21.3 % (37.5-50.1); Hemoglobin 7.2 g/dL (12.9-16.9); Immature Platelets 5.5 % (1.1-6.1); Mean Corpuscular HGB Conc 33.8 g/dL (31.6-35.5); Mean Corpuscular Hemoglobin 31.9 pg (28.0-33.3); Mean Corpuscular Volume 94.2 fL (83.0-100.0); Red Blood Count 2.26 M/mcL (4.19-5.50); Red Cell Distribution Width 19.2 % (11.5-14.5); White Blood Count 19.7 K/mcL (4.3-11.1)
[2022-04-05 01:42] LABS: BUN/Creatinine Ratio 25 (6-26); Blood Urea Nitrogen 16 mg/dL (6-20); Calcium 8.7 mg/dL (8.6-10.3); Carbon Dioxide 25 mEq/L (23-29); Chloride 93 mEq/L (98-107); Glucose 101 mg/dL (70-105); Osmolality,Calculated 261 (280-300); Potassium 4.1 mEq/L (3.5-5.1); Sodium 125 mEq/L (136-145); eGFR For African Americans > 60 (> 60); eGFR For Non-African Americans > 60 (> 60)
[2022-04-05] MEDS: Albuterol 2.5 MG/3 ML NEBULIZER IH SCH ×3 (04:17→15:28)
[2022-04-05] MEDS: Doxycycline 100 MG in 0.9 % Sodium Chloride Mini Bag 100 ML IVPB SCH (05:24)
[2022-04-05] MEDS: *HR* Heparin 5,000 UNIT/ML VIAL SQ SCH ×2 (05:24→14:55)
[2022-04-05] MEDS: *HR* HYDROmorphone 2 MG/ML SYRINGE IVP PRN ×4 (06:48→14:56)
[2022-04-05] MEDS: *HR* Metoprolol 5 MG/5 ML VIAL IVP PRN (06:49)
[2022-04-05] MEDS: predniSONE 20 MG TABLET PO SCH (09:22)
[2022-04-05] MEDS: Piperacillin/Tazobactam 3.375 GM in 0.9 % Sodium Chloride Mini Bag 100 ML IVPB SCH (09:22)
[2022-04-05] MEDS: Aspirin 81 MG TAB.CHEW PO SCH (09:22)
[2022-04-05] MEDS: GuaiFENesin/Dextromethorphan TABLET PO SCH (09:23)
[2022-04-05] MEDS: Gabapentin 300 MG CAPSULE PO SCH ×2 (09:23→14:55)
[2022-04-05] MEDS: Budesonide/Formoterol 80/4.5 1 PUFF INH IH SCH (10:46)
[2022-04-05 16:23] VITALS: BP 136/79; PULSE 90; TEMP 98; O2SAT 96
== END 2022-04-05 17:00 | disposition home health service (06) | DRG 871 ==
LOC: 2ANU
PROVIDERS: ADMIT Student in an Organized Health Care Education/Training Program; ATTEND Student in an Organized Health Care Education/Training Program

== ENCOUNTER 2022-04-14 09:25 | Observation (INO) ==
[2022-04-14] MEDS ORDERED: Isovue-370 500 ML BOTTLE IVP ONE ×2 (10:20→15:31)
[2022-04-14] MEDS ORDERED: Piperacillin/Tazobactam 3.375 GM in 0.9 % Sodium Chloride Mini Bag 100 ML IVPB ONE (10:22)
[2022-04-14] MEDS ORDERED: 0.9 % Sodium Chloride 1,000 ML IVC ONE (10:26)
[2022-04-14 11:17] LABS: Hematocrit 21.7 % (37.5-50.1); Mean Corpuscular HGB Conc 32.3 g/dL (31.6-35.5); Nucleated Red Blood Cells 1.8 /100 WBC (0)
[2022-04-14 11:19] LABS: Immature Platelets 4.3 % (1.1-6.1); Mean Corpuscular Hemoglobin 31.1 pg (28.0-33.3); Mean Corpuscular Volume 96.4 fL (83.0-100.0); Mean Platelet Volume 10.7 fL (9.4-12.4); Red Blood Count 2.25 M/mcL (4.19-5.50); Red Cell Distribution Width 18.8 % (11.5-14.5); White Blood Count 13.5 K/mcL (4.3-11.1)
[2022-04-14 11:20] LABS: Platelet Count 65 K/mcL (140-400)
[2022-04-14 11:40] LABS: Lymphocytes # 1.9 K/mcL (0.6-4.6); Monocytes # 0.5 K/mcL (0.0-1.3); Neutrophils # 10.5 K/mcL (1.6-8.9); Platelet Estimate Decreased (Normal)
[2022-04-14 11:49] LABS: Alanine Aminotransferase 28 Units/L (7-52); Albumin 3.7 g/dL (3.5-5.7); Albumin/Globulin Ratio 1.3 (1.1-2.2); Alkaline Phosphatase 149 Units/L (34-104); Aspartate Amino Transferase 44 Units/L (13-39); BUN/Creatinine Ratio 27 (6-26); Bilirubin,Direct 0.2 mg/dL (0.0-0.2); Bilirubin,Indirect 0.6 mg/dL (0.0-1.0); Bilirubin,Total 0.8 mg/dL (0.3-1.0); Blood Urea Nitrogen 18 mg/dL (6-20); Calcium 9.2 mg/dL (8.6-10.3); Carbon Dioxide 27 mEq/L (23-29); Chloride 89 mEq/L (98-107); Ethanol < 10 mg/dL (Less than 10); Globulin 2.8 g/dL (2.4-3.5); Glucose 106 mg/dL (70-105); Osmolality,Calculated 268 (280-300); Potassium 3.9 mEq/L (3.5-5.1); Sodium 128 mEq/L (136-145); Total Protein 6.5 g/dL (6.4-8.9); Troponin I < 0.03 ng/mL (< 0.04); eGFR For African Americans > 60 (> 60); eGFR For Non-African Americans > 60 (> 60)
[2022-04-14] MEDS ORDERED: DilTIAZem 125 MG in D5% in Water 100 ML IVC SCH (12:45)
[2022-04-14 13:27] LABS: Amorphous Sediment,Urine Few per hpf (None-Few); Bilirubin,Urine Negative (Negative); Blood,Urine Negative (Negative); Clarity,Urine Turbid (Clear); Color,Urine Yellow (Yellow); Glucose,Urine (UA) Normal (Normal); Ketones,Urine Trace mg/dL (Negative); Leukocyte Esterase,Urine Negative (Negative); Mucus,Urine Few per lpf (None-Few); Nitrite,Urine Negative (Negative); PH,Urine 7.5 pH Units (5.0-8.0); Protein,Urine 30 mg/dL (Neg-Trace); RBC,Urine 0-3 per hpf (0-3); Specific Gravity,Urine 1.018 (1.010-1.025); WBC,Urine 0-3 per hpf (0-3)
[2022-04-14 13:30] LABS: Amphetamine Screen,Urine Negative ng/mL (Cutoff=1000); Barbiturate Screen,Urine Negative ng/mL (Cutoff=200); Benzodiazepines Screen,Urine Negative ng/mL (Cutoff=200); Cannabinoid Screen,Urine Negative ng/mL (Cutoff = 50); Cocaine Screen,Urine Negative ng/mL (Cutoff= 300); Opiate Screen,Urine Positive ng/mL (Cutoff=300); Phencyclidine Screen,Urine Negative ng/mL (Cutoff=25)
[2022-04-14] MEDS ORDERED: Naloxone 0.4 MG/ML INJ IVP PRN (14:57)
[2022-04-14] MEDS ORDERED: Ondansetron 4 MG/2 ML VIAL IVP PRN (14:57)
[2022-04-14] MEDS ORDERED: *HR* HYDROcodone/Acet 5/325 mg TABLET PO PRN (14:59)
[2022-04-14] MEDS ORDERED: 0.9 % Sodium Chloride 1,000 ML IVC SCH (15:00)
[2022-04-14] MEDS ORDERED: *HR* OxyCODONE/APAP 10/325 TABLET PO PRN (15:00)
[2022-04-14] MEDS ORDERED: Ipratropium/Albuterol Neb 3 ML IH PRN (15:00)
[2022-04-14] MEDS ORDERED: *HR* LORazepam 0.5 MG TABLET PO PRN (15:02)
[2022-04-14] MEDS ORDERED: DilTIAZem 50 MG/50 ML IV.SOLN IVC SCH (15:45)
[2022-04-14] MEDS ORDERED: MethylPREDNISolone 40 MG/ML VIAL IVP SCH (16:00)
[2022-04-14 17:03] VITALS: BP 132/83; PULSE 120
[2022-04-14 17:05] LABS: Hematocrit 18.7 % (37.5-50.1); Hemoglobin 6.1 g/dL (12.9-16.9)
[2022-04-14 17:09] VITALS: TEMP 97.6
[2022-04-14 17:18] VITALS: O2SAT 98
[2022-04-14] MEDS ORDERED: Gabapentin 300 MG CAPSULE PO SCH (21:00)
[2022-04-15] MEDS ORDERED: *HR* Enoxaparin 40 MG/0.4 ML SYRINGE SQ SCH (06:00)
[2022-04-15] MEDS ORDERED: predniSONE 20 MG TABLET PO SCH (06:30)
[2022-04-15] MEDS ORDERED: levoFLOXacin 750 MG/150 ML 750 MG/150 ML BAG IVPB SCH (09:00)
[2022-04-15] MEDS ORDERED: Aspirin 81 MG TAB.CHEW PO SCH (09:00)
== END 2022-04-14 19:30 | disposition left against medical advice (07) ==
LOC: EMEROOARM 09:25 → 2NENU 09:25
PROVIDERS: ADMIT Internal Medicine; ATTEND Internal Medicine